=== PATIENT | female | born 1990 | race African-American/Black ===

== ENCOUNTER 2017-04-01 22:33 | Inpatient (IN) | payer OTHER ==
[~2017-04-01] VITALS: Ht 162.6 cm; Wt 72.6 kg
[2017-04-01] MEDS ORDERED: KETOROLAC TROMETHAMINE 15 MG INJ IV ONE (23:30)
[2017-04-01] MEDS ORDERED: KETOROLAC TROMETHAMINE 15 MG INJ ONE (23:57)
[2017-04-01 23:59] LABS: CREATININE 0.9 mg/dL (0.6-1.3); POTASSIUM 3.8 mmol/L (3.5-5.1)
[2017-04-01] MEDS ORDERED: METOCLOPRAMIDE HCL 10 MG/2 ML VIAL ONE (23:59)
[2017-04-02 00:03] LABS: BASOPHILS % (AUTO) 0.3 % (0.0-2.0); EOSINOPHILS # (AUTO) 0.1 K/uL (0.0-0.7); EOSINOPHILS % (AUTO) 0.7 % (0.0-7.0); HEMATOCRIT 44.8 % (37-47); HEMOGLOBIN 14.6 G/DL (12.0-16.0); LYMPHOCYTES # (AUTO) 2.5 K/UL (0.8-4.8); MEAN CORPUSCULAR HEMOGLOBIN 27.9 UUG (27.0-31.0); MEAN CORPUSCULAR HGB CONC 33 g/dL (32.0-37.0); MEAN CORPUSCULAR VOLUME 85.4 FL (81.0-99.0); MONOCYTES # (AUTO) 0.6 K/UL (0.1-1.30); MONOCYTES % (AUTO) 4.6 % (0.0-11.0); NEUTROPHILS % (AUTO) 75.4 % (38.5-71.5); PLATELET COUNT (AUTO) 231 K/UL (150-450); RED BLOOD CELL COUNT(AUTO) 5.24 MIL/UL (4.2-5.4); WHITE BLOOD COUNT (AUTO) 13.2 K/UL (4.0-11.2)
[2017-04-02 00:04] LABS: BILIRUBIN,DIRECT 0.2 mg/dL (0.0-0.2); BILIRUBIN,TOTAL 0.4 mg/dL (0.2-1.0); TOTAL PROTEIN, SERUM 7.9 g/dL (6.4-8.2)
[2017-04-02] MEDS ORDERED: METOCLOPRAMIDE HCL 10 MG/2 ML VIAL IV ONE ×2 (00:15→00:45)
--- NOTE | 2017-04-02 00:18 | NUR ---
Radiology at bedside for US.
--- NOTE | 2017-04-02 00:28 | NUR ---
Radiology completed US, preliminary results to ERMD.
[2017-04-02] MEDS ORDERED: METOCLOPRAMIDE HCL 10 MG/2 ML VIAL ONE (01:04)
[2017-04-02] MEDS ORDERED: HYDROMORPHONE 1 MG/1 ML DISP.SYRIN IV ONE (01:30)
[2017-04-02] MEDS ORDERED: ONDANSETRON IV *ER 4 MG/2 ML VIAL IV ONE (01:30)
[2017-04-02] MEDS ORDERED: ONDANSETRON 4 MG/2 ML VIAL ONE (01:44)
[2017-04-02] MEDS ORDERED: HYDROMORPHONE 2 MG/1 ML DISP.SYRIN ONE (01:44)
--- NOTE | 2017-04-02 01:49 | NUR ---
Pt. admitted to [facility], under care of Dr. Puga Belongs List completed
--- NOTE | 2017-04-02 02:00 | NUR ---
RECEIVED PATIENT VIA W/C FROM ER. PATIENT IS A/O X4. PATIENT WAS PREVIOUSLY MEDICATED PRIOR TO COMING UP TO FLOOR. UPON ADMISSION PATIENT NOTED TO BE "DRY-HEAVING." VSS. NO RESP. DISTRESS NOTED. PATIENT ORIENTED TO ROOM AND CALL LIGHT AND MADE COMFORTABLE TO SLEEP. CALL LIGHT IN REACH. ALL NEEDS ATTENDED. WILL CONTINUE TO MONITOR.
[2017-04-02] MEDS ORDERED: ACETAMINOPHEN 325 MG TABLET PO PRN (02:15)
[2017-04-02] MEDS ORDERED: MAGNESIUM HYDROXIDE 30 ML LIQUID UDC PO PRN (02:15)
[2017-04-02] MEDS ORDERED: METOCLOPRAMIDE HCL 10 MG/2 ML VIAL IV PRN (02:15)
[2017-04-02] MEDS ORDERED: ZOLPIDEM 5 MG TABLET PO PRN (02:15)
[2017-04-02] MEDS ORDERED: Z GUARD REMEDY PASTE 57 GM TUBE TOP PRN (02:15)
[2017-04-02] MEDS ORDERED: HYDROMORPHONE 1 MG/1 ML DISP.SYRIN IM PRN (02:15)
[2017-04-02] MEDS ORDERED: ONDANSETRON 4 MG/2 ML VIAL IV PRN (02:15)
[2017-04-02] MEDS ORDERED: HYDROCODONE/APAP 5-325MG TABLET PO PRN (02:15)
[2017-04-02 02:18] VITALS: BP 95/51
--- NOTE | 2017-04-02 03:35 | NUR ---
PATIENT ASLEEP. NO S/S OF PAIN OR DISCOMFORT. CALL LIGHT IN REACH. WILL CONTINUE TO MONITOR.
[2017-04-02 05:54] VITALS: BP 101/62
--- NOTE | 2017-04-02 06:47 | NUR ---
PATIENT AWAKE IN BED. SLEPT WELL. DENIES ANY PAIN OR DISCOMFORT. DENIES NAUSEA. VSS. SPOKE WITH BRADEN FROM [employer] IN REGARDS TO HIDA SCAN. PATIENT IS OK TO EAT BREAKFAST AND THEN NPO AT LEAST 4 HOURS BEFORE HIDA SCAN AND SHE STATED IT WONT BE UNTIL THE AFTERNOON. CONSENT SIGNED AND PLACED IN CHART. CALL LIGHT IN REACH. ALL NEEDS ATTENDED. WILL CONTINUE TO MONITOR AND ASSESS.
--- NOTE | 2017-04-02 08:00 | NUR ---
awake alert and oriented, denies of abdominal pain, no nausea/vomiting-explained plan fo care, verbalized understanding, for HIDA scan today- clear liquid breakfast then npo- pt informed and understood, call light within reach
[2017-04-02] MEDS: PANTOPRAZOLE SODIUM 40 MG TABLET.DR PO SCH (08:11)
--- NOTE | 2017-04-02 10:20 | NUR ---
to [facility] dept per w/c
[2017-04-02 11:04] VITALS: BP 116/80
--- NOTE | 2017-04-02 12:30 | NUR ---
back from xray dept, denies of pain, no n/v
[2017-04-02 15:00] VITALS: BP 128/74
--- NOTE | 2017-04-02 16:00 | NUR ---
resting in bed, denies of pain and no nausea/vomiting
--- NOTE | 2017-04-02 17:55 | NUR ---
resting in bed- informed of EGD and laparoscopic cholecystectomy to be done in am- pt in agreement
[2017-04-02 20:00] VITALS: BP 119/83
[2017-04-03] VITALS (7 sets, daily range): BP systolic 110–137; BP diastolic 70–89
--- NOTE | 2017-04-03 03:01 | NUR ---
Patient aware of procedure tomorrow. She spoke with the surgeon, consent signed and placed on NPO after midnight.
[2017-04-03 03:51] LABS: *BILIRUBIN,URIN 1+ (NEGATIVE); *BLOOD, URINE NEGATIVE (NEGATIVE); *CLARITY,URINE SLIGHTLY CLOUDY (CLEAR); *COLOR,URINE YELLOW (YELLOW); *KETONES,URINE TRACE (NEGATIVE); *PROTEIN,URINE TRACE (NEGATIVE); *UROBILINOGEN,URINE 0.2 E.U./dl (NORMAL); LEUKOCYTE ESTERASE ,URINE 2+ (NEGATIVE); NITRITE, URINE NEGATIVE (NEGATIVE); UGLUCOSE NEGATIVE (NEGATIVE)
[2017-04-03 04:39] LABS: BACTERIA,URINE MANY /HPF (NONE SEEN); RBC,URINE 0-3 /HPF (0-3); SQUAMOUS EPITHELIAL CELL,UR MANY /HPF (NONE SEEN)
[2017-04-03] MEDS: MORPHINE SULFATE 2 MG/1 ML DISP.SYRIN IV PRN ×3 (04:39→21:09)
[2017-04-03] MEDS: PANTOPRAZOLE SODIUM 40 MG TABLET.DR PO SCH (06:18)
[2017-04-03 06:23] LABS: BASOPHILS % (AUTO) 0.3 % (0.0-2.0); EOSINOPHILS # (AUTO) 0.1 K/uL (0.0-0.7); EOSINOPHILS % (AUTO) 2.5 % (0.0-7.0); HEMATOCRIT 42.6 % (37-47); HEMOGLOBIN 14.1 G/DL (12.0-16.0); LYMPHOCYTES # (AUTO) 2.9 K/UL (0.8-4.8); LYMPHOCYTES % (AUTO) 47.3 % (20.5-51.5); MEAN CORPUSCULAR HEMOGLOBIN 28.3 UUG (27.0-31.0); MEAN CORPUSCULAR HGB CONC 33 g/dL (32.0-37.0); MEAN CORPUSCULAR VOLUME 85.3 FL (81.0-99.0); MONOCYTES # (AUTO) 0.4 K/UL (0.1-1.30); MONOCYTES % (AUTO) 7.2 % (0.0-11.0); NEUTROPHILS # (AUTO) 2.6 K/UL (1.8-8.9); NEUTROPHILS % (AUTO) 42.7 % (38.5-71.5); PLATELET COUNT (AUTO) 211 K/UL (150-450); RED BLOOD CELL COUNT(AUTO) 4.99 MIL/UL (4.2-5.4)
[2017-04-03 06:51] LABS: PHOSPHOROUS 3.5 mg/dL (2.5-4.9)
[2017-04-03 06:53] LABS: BILIRUBIN,TOTAL 0.6 mg/dL (0.2-1.0); POTASSIUM 3.5 mmol/L (3.5-5.1); TOTAL PROTEIN, SERUM 7.3 g/dL (6.4-8.2)
--- NOTE | 2017-04-03 07:20 | NUR ---
RECEIVED REPORT FROM CLOTHING DESIGNER, PATIENT IN BED AWAKE, NO EVIDENCE OF DISTRESS NOTED, BED IN LOW POSITION, SIDE RAILS UP X2.
[2017-04-03] MEDS ORDERED: LIDOCAINE HCL 1% 20 ML VIAL ONE (07:38)
[2017-04-03] MEDS ORDERED: BUPIVACAINE/EPI PF 0.25% 30 ML VIAL ONE (07:39)
[2017-04-03] MEDS ORDERED: NEOMY/BACITRAC/POLYMI OINT 28.35 GM TUBE ONE (10:02)
--- NOTE | 2017-04-03 11:10 | NUR ---
Patient was transferred to OR for procedure.
[2017-04-03] MEDS ORDERED: MIDAZOLAM HCL 2 MG/2 ML VIAL ONE ×2 (11:31→14:20)
[2017-04-03] MEDS ORDERED: SUCCINYLCHOLINE CHLORIDE 200 MG/10 ML VIAL ONE (12:11)
[2017-04-03] MEDS ORDERED: FENTANYL CITRATE 100 MCG/2 ML AMPUL ONE (13:39)
[2017-04-03] MEDS ORDERED: IPRATROPIUM BROMIDE 0.5 MG/2.5 ML NEBU ONE (13:52)
[2017-04-03] MEDS ORDERED: ALBUTEROL SULFATE 2.5 MG/3 ML NEBU ONE (13:52)
[2017-04-03] MEDS ORDERED: HYDROMORPHONE 1 MG/1 ML DISP.SYRIN ONE (14:03)
[2017-04-03] MEDS ORDERED: ONDANSETRON 4 MG/2 ML VIAL ONE (14:03)
[2017-04-03] MEDS: GABAPENTIN 300 MG CAPSULE PO SCH ×2 (15:00→21:00)
[2017-04-03] MEDS: ACETAMINOPHEN 325 MG TABLET PO SCH ×2 (15:00→23:34)
--- NOTE | 2017-04-03 15:25 | NUR ---
Patient returned from OR, and placed on awake overnight monitor. Vitals recorded. Patient does not appear to be in any distress, no shortness of breath, not pain reported upon arrival on unit.
[2017-04-03] MEDS: IBUPROFEN 800 MG TABLET PO SCH (16:03)
[2017-04-03] MEDS ORDERED: PHENOL/SODIUM PHENOLATE SPRAY 177 ML BOTTLE MM PRN (16:45)
--- NOTE | 2017-04-03 18:50 | NUR ---
Patient in bed, no evidence of distress noted. Pain has been managed, oxygen saturation WNL on 2L, patient is tolerating clear liquids and has urinated.
[2017-04-03] MEDS ORDERED: PROPOFOL 200 MG/20 ML BOTTLE IV ONE (18:59)
[2017-04-03] MEDS ORDERED: ESMOLOL HCL 100 MG/10 ML VIAL IV ONE (18:59)
[2017-04-03] MEDS ORDERED: ONDANSETRON 4 MG/2 ML VIAL IV ONE (18:59)
[2017-04-03] MEDS ORDERED: SEVOFLURANE 250 ML BOTTLE IH ONE (18:59)
[2017-04-03] MEDS ORDERED: IV NORMAL SALINE 1000 ML BAG IV ONE (18:59)
[2017-04-03] MEDS ORDERED: DEXAMETHASONE SOD PHOSPHATE 4 MG INJ IV ONE (18:59)
[2017-04-03] MEDS ORDERED: KETOROLAC TROMETHAMINE 30 MG INJ IM ONE (18:59)
[2017-04-03] MEDS ORDERED: CEFAZOLIN 1 G VIAL MC ONE (18:59)
--- NOTE | 2017-04-03 19:30 | NUR ---
RECEIVED PATIENT SLEEPING COMFORTABLY IN BED. NO ACUTE DISTRESS NOTED. SAFETY INITIATED. CALL LIGHT WITHIN REACH. TELE, SINUS TACH 113. WILL CONTINUE TO MONITOR. WILL REVIEW MEDS AND WILL GIVE MEDS ORDERED.
--- NOTE | 2017-04-03 21:00 | NUR ---
BODY ASSESSMENT DONE. FOUR ABDOMINAL DRESSINGS, CLEAN, DRY AND INTACT. PATIENT REPORTS PAIN 7/10 ABDOMINAL. WILL GIVE PAIN MEDICATIONS ORDERED. PATIENT WAS ABLE TO AMBULATE TO THE RESTROOM WITH NO ASSISTANCE. WILL CONTINUE TO MONITOR. INSTRUCTED PATIENT TO USE CALL LIGHT WHEN IN NEED OF ASSISTANCE.
[2017-04-04 00:03] VITALS: BP 116/74
[2017-04-04 04:00] VITALS: BP 103/65
[2017-04-04] MEDS: GABAPENTIN 300 MG CAPSULE PO SCH ×2 (05:05→14:00)
[2017-04-04] MEDS: MORPHINE SULFATE 2 MG/1 ML DISP.SYRIN IV PRN ×2 (05:06→08:27)
[2017-04-04] MEDS: ACETAMINOPHEN 325 MG TABLET PO SCH ×2 (05:13→13:12)
[2017-04-04] MEDS: PANTOPRAZOLE SODIUM 40 MG TABLET.DR PO SCH (06:05)
--- NOTE | 2017-04-04 07:15 | NUR ---
RECEIVED REPORT FROM SEPTIC CLEANER NURSE, PATIENT IS IN BED AWAKE, REPORTS SEVERE PAIN AND REQUESTS THAT SEPTIC CLEANER NURSE PLACES IV BACK IN SO THAT MORPHINE CAN BE ADMINISTERED. WHEN PATIENT WAS OFFERED TO HAVE IV PLACED BY THIS BARGE PILOT, PATIENT DECLINED AND STATED THAT SHE WANTS THE NIGHT NURSE TO PLACE IT.
--- NOTE | 2017-04-04 07:36 | NUR ---
PATIENT SLEPT INTERMITTENTLY T/O THE NIGHT. NO ACUTE DISTRESS NOTED. VSS. TELE SR. PATIENT C/O OF PAIN 7/10 AT INCISION SITE. MEDS GIVEN STATED RELIEF. 4 2X2 DRESSING IN THE ABD. C/D/I. ALL MEDS GIVEN ORDERED. ALL NEEDS MET. SAFETY AND COMFORT MAINTAINED T/O SHIFT. WILL CONTINUE TO MONITOR.
[2017-04-04] MEDS: IBUPROFEN 800 MG TABLET PO SCH ×2 (08:00→12:00)
[2017-04-04 11:31] VITALS: BP 148/86
--- NOTE | 2017-04-04 16:00 | NUR ---
PATIENT WAS NOTIFIED THAT HER DISCHARGE WAS CONFIRMED AND THAT SHE WOULD NOT BE ABLE TO STAY ANOTHER NIGHT.
--- NOTE | 2017-04-04 16:15 | NUR ---
IV WAS REMOVED, DISCHARGE INFORMATION WAS PROVIDED TO PATIENT, AND PATIENT WAS PICKED UP BY BOYFRIEND.
== END 2017-04-04 19:00 | disposition home or self-care (01) | DRG 263 ==
LOC: ER 22:34 → MED 04-02 01:15 → TELE 04-03 15:25
PROVIDERS: ADMIT Internal Medicine; ATTEND Internal Medicine
PROC: 0FT44ZZ Resection of Gallbladder, Percutaneous Endoscopic Approach (ICD-10-PCS; principal; 2017-04-03 11:48)
PROC: 0DB68ZX Excision of Stomach, Via Natural or Artificial Opening Endoscopic, Diagnostic (ICD-10-PCS; 2017-04-04)
DX: K80.10 Calculus of gallbladder with chronic cholecystitis without obstruction (principal); J45.909 Unspecified asthma, uncomplicated
CPT/HCPCS: 36415; 70030-TC; 78445; 83690; 83735; 84100; 84703; 85025; 85730; 93005; 94664; A4217; A4663; A9537; J0330; J0690; J1100; J1170; J1885; J2250; J2270; J2405; J2765; J3010; J3490; J3590; J7030

== ENCOUNTER 2017-04-27 21:19 | Emergency (ER) | payer OTHER ==
[~2017-04-27] VITALS: Ht 162.6 cm; Wt 72.6 kg
[2017-04-27 23:09] LABS: *BILIRUBIN,URIN NEGATIVE (NEGATIVE); *BLOOD, URINE Trace-intact (NEGATIVE); *CLARITY,URINE CLEAR (CLEAR); *COLOR,URINE YELLOW (YELLOW); *KETONES,URINE NEGATIVE (NEGATIVE); *PROTEIN,URINE NEGATIVE (NEGATIVE); *UROBILINOGEN,URINE 0.2 E.U./dl (NORMAL); LEUKOCYTE ESTERASE ,URINE TRACE (NEGATIVE); NITRITE, URINE NEGATIVE (NEGATIVE); UGLUCOSE NEGATIVE (NEGATIVE)
[2017-04-27 23:11] LABS: *URINE HCG, QUAL NEGATIVE (NEGATIVE); BACTERIA,URINE NONE SEEN /HPF (NONE SEEN); RBC,URINE 0-3 /HPF (0-3); SQUAMOUS EPITHELIAL CELL,UR FEW /HPF (NONE SEEN); WBC,URINE 0-3 /HPF (0-3)
--- NOTE | 2017-04-28 00:51 | NUR ---
Patient discharged to home in stable conditon. Written and verbal after care instructions given. Patient verbalizes understanding of instructions.
== END 2017-04-28 00:52 | disposition home or self-care (01) ==
LOC: ER 21:19
DX: S30.1XXA Contusion of abdominal wall, initial encounter (principal); J45.909 Unspecified asthma, uncomplicated; Z91.040 Latex allergy status; V43.52XA Car driver injured in collision with other type car in traffic accident, initial encounter; Y93.89 Activity, other specified; Y92.413 State road as the place of occurrence of the external cause; Y99.9 Unspecified external cause status
CPT/HCPCS: 74176; 76705; 81001; 84703; 99285; A4663

== ENCOUNTER 2018-03-23 01:29 | Emergency (ER) | payer OTHER ==
[~2018-03-23] VITALS: Ht 162.6 cm; Wt 68.9 kg
--- NOTE | 2018-03-23 01:49 | NUR ---
Dr. Chaudhry at bedside for MSE.
[2018-03-23] MEDS ORDERED: DEXAMETHASONE SOD PHOSPHATE 4 MG INJ IM ONE (02:00)
[2018-03-23] MEDS ORDERED: PENICILLIN V POTASSIUM 500 MG TABLET PO ONE (02:00)
[2018-03-23] MEDS ORDERED: PENICILLIN V POTASSIUM 500 MG TABLET ONE (02:04)
[2018-03-23] MEDS ORDERED: DEXAMETHASONE SOD PHOSPHATE 10 MG INJ ONE (02:04)
--- NOTE | 2018-03-23 02:07 | NUR ---
Patient discharged to home in stable conditon. Written and verbal after care instructions given. Patient verbalizes understanding of instructions. Pt ambulated out of ER with steady gait, no acute signs of distress, VSS, all belongings taken.
[2018-03-23 02:08] VITALS: BP 114/76
== END 2018-03-23 02:12 | disposition home or self-care (01) ==
LOC: ER 01:30
DX: J03.90 Acute tonsillitis, unspecified (principal); Z91.040 Latex allergy status
CPT/HCPCS: 96372; 99283; A4663; J1100

== ENCOUNTER 2018-12-24 12:09 | Emergency (ER) | payer OTHER ==
[~2018-12-24] VITALS: Ht 162.6 cm; Wt 65.8 kg
--- NOTE | 2018-12-24 12:15 | NUR ---
RAMY BOGGS AT BEDSIDE FOR MSE.
[2018-12-24] MEDS ORDERED: TDAP DIPH,PERTUSS,TET VAC/PF 0.5 ML DISP.SYRIN IM ONE ×2 (12:23→12:30)
[2018-12-24] MEDS ORDERED: NAPROXEN 500 MG TABLET ONE (12:23)
[2018-12-24] MEDS ORDERED: NAPROXEN 500 MG TABLET PO ONE (12:30)
--- NOTE | 2018-12-24 12:33 | NUR ---
RAMY BOGGS AT BEDSIDE FOR PT UPDATE.
[2018-12-24 12:36] VITALS: BP 121/72
--- NOTE | 2018-12-24 12:36 | NUR ---
Patient discharged to home in stable conditon. Written and verbal after care instructions given. Patient verbalizes understanding of instructions. ALL BELONGINGS W/ PT. PT SELF-AMBULATED W/O DIFFICULTY.
== END 2018-12-24 12:37 | disposition home or self-care (01) ==
LOC: ER 12:10
DX: S91.332A Puncture wound without foreign body, left foot, initial encounter (principal); J45.909 Unspecified asthma, uncomplicated; Z90.49 Acquired absence of other specified parts of digestive tract; W45.0XXA Nail entering through skin, initial encounter; Y93.89 Activity, other specified; Y92.89 Other specified places as the place of occurrence of the external cause; Y99.8 Other external cause status
CPT/HCPCS: 73620; 90715; A4663

== ENCOUNTER 2019-01-04 13:39 | Emergency (ER) | payer OTHER ==
[~2019-01-04] VITALS: Ht 162.6 cm; Wt 71.7 kg
--- NOTE | 2019-01-04 14:01 | NUR ---
PATIENT WAS MSE BY DR GUTIERREZ ROOM 02A. PATIENT A & O X3.
[2019-01-04 14:17] LABS: *URINE HCG, QUAL NEGATIVE (NEGATIVE)
--- NOTE | 2019-01-04 14:25 | NUR ---
Patient discharged to home in stable conditon. Written and verbal after care instructions given. Patient verbalizes understanding of instructions.
[2019-01-04 14:27] VITALS: BP 118/76
== END 2019-01-04 14:28 | disposition home or self-care (01) ==
LOC: ER 13:39
DX: Z30.012 Encounter for prescription of emergency contraception (principal); J45.909 Unspecified asthma, uncomplicated; Z90.49 Acquired absence of other specified parts of digestive tract; Z91.040 Latex allergy status
CPT/HCPCS: 84703; A4663

== ENCOUNTER 2023-07-23 13:25 | Emergency (ER) | payer OTHER ==
[~2023-07-23] VITALS: Ht 162.6 cm; Wt 77.1 kg
[2023-07-23] MEDS ORDERED: DEXAMETHASONE SOD PHOSPHATE 4 MG INJ IM ONE (14:15)
[2023-07-23] MEDS ORDERED: KETOROLAC TROMETHAMINE 15 MG INJ IM ONE (14:15)
[2023-07-23] MEDS ORDERED: DEXAMETHASONE SOD PHOSPHATE 10 MG INJ ONE (14:27)
[2023-07-23] MEDS ORDERED: KETOROLAC TROMETHAMINE 15 MG INJ ONE (14:28)
[2023-07-23] MEDS ORDERED: IBUP-1955 PO (14:33)
[2023-07-23] MEDS ORDERED: AMOX500T2 PO (14:33)
[2023-07-23 14:40] VITALS: BP 123/83; O2SAT 98
== END 2023-07-23 14:40 | disposition home or self-care (01) ==
LOC: ER 13:25
DX: J02.9 Acute pharyngitis, unspecified (principal); J45.909 Unspecified asthma, uncomplicated; Z90.49 Acquired absence of other specified parts of digestive tract; Z20.822 Contact with and (suspected) exposure to COVID-19
CPT/HCPCS: 99284; 87426; 87804; 86403; 96372 ×2; J1100; J1885; A4606; A4663

== ENCOUNTER 2023-11-26 10:49 | Emergency (ER) | payer OTHER ==
[~2023-11-26] VITALS: Ht 162.6 cm; Wt 77.1 kg
[~2023-11-26 10:49] MED LIST: AMOX500T2 PO; IBUP-1955 PO
[2023-11-26] MEDS ORDERED: CYCL5TAB PO (11:10)
[2023-11-26] MEDS ORDERED: LIDO30AD10 TP (11:10)
[2023-11-26 11:15] VITALS: BP 126/71; O2SAT 99
== END 2023-11-26 11:16 | disposition home or self-care (01) ==
LOC: ER 10:49
DX: S29.012A Strain of muscle and tendon of back wall of thorax, initial encounter (principal); J45.909 Unspecified asthma, uncomplicated; Z90.49 Acquired absence of other specified parts of digestive tract; Z79.899 Other long term (current) drug therapy; Z91.040 Latex allergy status; V89.2XXA Person injured in unspecified motor-vehicle accident, traffic, initial encounter; Y93.89 Activity, other specified; Y92.89 Other specified places as the place of occurrence of the external cause; Y99.8 Other external cause status
CPT/HCPCS: A4606; A4663

== ENCOUNTER 2024-12-28 23:30 | Emergency (ER) | payer OTHER ==
[~2024-12-28] VITALS: Ht 162.6 cm; Wt 83.9 kg
[~2024-12-28 23:30] MED LIST changes: +CYCL5TAB PO; +LIDO30AD10 TP
[2024-12-28] MEDS ORDERED: diphenhydrAMINE 50 MG/1 ML VIAL ONE (23:53)
[2024-12-28] MEDS ORDERED: METOCLOPRAMIDE HCL 10 MG/2 ML VIAL ONE (23:53)
[2024-12-28] MEDS ORDERED: KETOROLAC TROMETHAMINE 30 MG INJ ONE (23:53)
[2024-12-28 23:57] LABS: BASOPHILS % (AUTO) 0.3 % (0.0-2.0); EOSINOPHILS % (AUTO) 0.3 % (0.0-7.0); HEMATOCRIT 47.4 % (31.2-41.9); HEMOGLOBIN 15.9 g/dL (10.9-14.3); LYMPHOCYTES # (AUTO) 2.7 K/uL (0.8-4.8); LYMPHOCYTES % (AUTO) 26.4 % (20.5-51.5); MEAN CORPUSCULAR HEMOGLOBIN 28.5 uug (24.7-32.8); MEAN CORPUSCULAR HGB CONC 33 g/dL (32.3-35.6); MEAN CORPUSCULAR VOLUME 85.3 fL (75.5-95.3); MONOCYTES # (AUTO) 0.6 K/uL (0.1-1.30); NEUTROPHILS # (AUTO) 6.9 K/uL (1.8-8.9); PLATELET COUNT (AUTO) 298 K/uL (179-408); RED BLOOD CELL COUNT(AUTO) 5.56 MIL/uL (3.63-4.92); RED CELL DISTRIBUTION WIDTH 13.7 % (12.3-17.7); WHITE BLOOD COUNT (AUTO) 10.4 K/uL (3.8-11.8)
[2024-12-28] MEDS: METOCLOPRAMIDE HCL 10 MG/2 ML VIAL IV ONE (23:59)
[2024-12-28] MEDS: KETOROLAC TROMETHAMINE 30 MG INJ IVP ONE (23:59)
[2024-12-28] MEDS: IV NORMAL SALINE 1000 ML BAG IV ONE (23:59)
[2024-12-28] MEDS: diphenhydrAMINE 50 MG/1 ML VIAL IV ONE (23:59)
[2024-12-29 00:06] LABS: CREATININE 0.9 mg/dL (0.6-1.3); POTASSIUM 3.5 mmol/L (3.5-5.1)
[2024-12-29 00:11] LABS: CALCIUM 9.2 mg/dL (8.5-10.1)
[2024-12-29] MEDS ORDERED: ONDA4TAB11 PO (00:44)
[2024-12-29 01:02] VITALS: BP 122/95; O2SAT 99
== END 2024-12-29 01:03 | disposition home or self-care (01) ==
LOC: ER 23:30
DX: G43.909 Migraine, unspecified, not intractable, without status migrainosus (principal); R11.2 Nausea with vomiting, unspecified; Z90.49 Acquired absence of other specified parts of digestive tract
CPT/HCPCS: 99284; 96374; 96375; 96361; 80048; 85025; 36415; J1885; J1200; J2765; J7040; A4606; A4663

== ENCOUNTER 2025-05-25 07:50 | Emergency (ER) | payer OTHER ==
[~2025-05-25] VITALS: Ht 162.6 cm; Wt 69.4 kg
[~2025-05-25 07:50] MED LIST changes: +ONDA4TAB11 PO
[2025-05-25] MEDS ORDERED: ONDANSETRON 4 MG/2 ML VIAL ONE (08:35)
[2025-05-25 08:36] LABS: PLATELET COUNT (AUTO) 310 K/uL (179-408); RED BLOOD CELL COUNT(AUTO) 5.94 MIL/uL (3.63-4.92); RED CELL DISTRIBUTION WIDTH 13.4 % (12.3-17.7); WHITE BLOOD COUNT (AUTO) 11.0 K/uL (3.8-11.8)
[2025-05-25] MEDS ORDERED: LIDOCAINE VISCUS 2% 15 ML UDC ONE (08:36)
[2025-05-25] MEDS ORDERED: MAG HYDROX/AL HYDROX/SIMETH 30 ML LIQUID UDC ONE (08:36)
[2025-05-25] MEDS: MAG HYDROX/AL HYDROX/SIMETH 30 ML LIQUID UDC PO ONE (08:41)
[2025-05-25] MEDS: LIDOCAINE VISCUS 2% 15 ML UDC MM ONE (08:41)
[2025-05-25] MEDS: ONDANSETRON 4 MG/2 ML VIAL IV ONE (08:41)
[2025-05-25] MEDS: IV NORMAL SALINE 1000 ML BAG IV ONE (08:41)
[2025-05-25 08:48] LABS: CREATININE 1.1 mg/dL (0.6-1.3); SODIUM SERUM 122 mmol/L (136-145); UREA NITROGEN, BLOOD 12 mg/dL (7-18)
[2025-05-25 08:54] LABS: ASPARTATE AMINOTRANSFERASE 18 U/L (15-37); TOTAL PROTEIN, SERUM 8.8 g/dL (6.4-8.2)
[2025-05-25] MEDS ORDERED: POTASSIUM CHLORIDE 150 ML ONE (09:10)
[2025-05-25] MEDS: POTASSIUM CHLORIDE 50 ML IV SCH (09:21)
[2025-05-25 11:32] LABS: *BLOOD, URINE 3+ (NEGATIVE); *CLARITY,URINE CLEAR (CLEAR); *COLOR,URINE YELLOW (YELLOW); *KETONES,URINE 4+ (NEGATIVE); *PROTEIN,URINE 2+ (NEGATIVE); *UROBILINOGEN,URINE 0.2 E.U./dl (NORMAL); LEUKOCYTE ESTERASE ,URINE NEGATIVE (NEGATIVE); NITRITE, URINE NEGATIVE (NEGATIVE); UGLUCOSE NEGATIVE (NEGATIVE)
[2025-05-25 11:33] LABS: *BILIRUBIN,URIN 1+ (NEGATIVE)
[2025-05-25 11:45] LABS: SQUAMOUS EPITHELIAL CELL,UR MODERATE /HPF (NONE SEEN)
[2025-05-25] MEDS ORDERED: PROCHLORPERAZINE EDISYLATE 10 MG/2 ML VIAL ONE (13:02)
[2025-05-25] MEDS: PROCHLORPERAZINE EDISYLATE 10 MG/2 ML VIAL IV ONE (13:11)
[2025-05-25 14:26] VITALS: BP 122/89; O2SAT 98
== END 2025-05-25 14:49 | disposition admitted as inpatient to this hospital (09) ==
LOC: ER 07:50
DX: K21.9 Gastro-esophageal reflux disease without esophagitis (principal); T50.905A Adverse effect of unspecified drugs, medicaments and biological substances, initial encounter; E87.6 Hypokalemia; E87.1 Hypo-osmolality and hyponatremia; Z90.49 Acquired absence of other specified parts of digestive tract; Z91.040 Latex allergy status; Y92.89 Other specified places as the place of occurrence of the external cause
CPT/HCPCS: 99285; 96374; 96361; 96375; 80076; 80048; 81001; 85025; 84484 ×2; 36415; 93005; J2405; J3480; J0780; J7040 ×2; A4606; A4663